=== PATIENT | male | born 1955 | race Hispanic/Latino ===

== ENCOUNTER 2017-09-20 15:00 | Inpatient (IN) | payer OTHER ==
[~2017-09-20] VITALS: Ht 177.8 cm; Wt 116.7 kg
[~2017-09-20 15:00] MED LIST: NIFE60TA12 PO; ZOLP10TA6 PO
[2017-09-20 16:16] LABS: INR 0.92 (0.85-1.15); PARTIAL THROMBOPLASTIN TIME 24.7 SEC (26.3-35.5); PROTHROMBIN TIME 9.7 SEC (9.6-11.6)
[2017-09-20 16:40] VITALS: BP 131/81
[2017-09-20] MEDS ORDERED: DOCU-116 PO (18:02)
[2017-09-20] MEDS ORDERED: LISI40TA4 PO (18:02)
[2017-09-20] MEDS ORDERED: GABA-531 PO (18:02)
[2017-09-23] VITALS (22 sets, daily range): BP systolic 110–161; BP diastolic 64–92
[2017-09-23] MEDS ORDERED: CEFAZOLIN SODIUM 1 GM VIAL ONE ×4 (06:55→20:51)
[2017-09-23] MEDS ORDERED: TRANEXAMIC ACID 1000MG/10ML IV ONE (06:55)
[2017-09-23] MEDS ORDERED: CEFAZOLIN 3GM /D5W 100ML 100 ML IV ONE (08:00)
[2017-09-23] MEDS ORDERED: LACTATED RINGERS 1000ML 1,000 ML IV ONE (08:00)
[2017-09-23] MEDS ORDERED: WATER FOR INJECTION,STERILE 20 ML VIAL ONE (08:00)
[2017-09-23] MEDS ORDERED: ACETAMINOPHEN EXTRA STRENGTH 500 MG TABLET ONE (08:23)
[2017-09-23] MEDS ORDERED: CELECOXIB 200 MG CAP ONE (08:24)
[2017-09-23] MEDS ORDERED: KETOROLAC TROMETHAMINE 15MG/ML ONE (08:24)
[2017-09-23] MEDS ORDERED: METOCLOPRAMIDE 10 MG/2 ML VIAL ONE (08:24)
[2017-09-23] MEDS ORDERED: OXYCODONE HCL 10 MG TAB.SR.12H PO ONE (08:25)
[2017-09-23] MEDS ORDERED: ROPIVACAINE 0.5% 5MG/ML 30ML IJ ONE (10:28)
[2017-09-23] MEDS ORDERED: SUCCINYLCHOLINE 200MG/10ML SYR ONE (10:29)
[2017-09-23] MEDS ORDERED: NEOSTIGMINE METHYLSULFATE 1MG/ML IV ONE (10:29)
[2017-09-23] MEDS ORDERED: DEXAMETHASONE SOD PHOSPHATE 10MG/ML 1ML VIAL ONE (10:29)
[2017-09-23] MEDS ORDERED: ONDANSETRON HCL 4 MG/2 ML VIAL ONE (10:29)
[2017-09-23] MEDS ORDERED: GLYCOPYRROLATE 0.2 MG/ML 5 ML VIAL ONE (10:29)
[2017-09-23] MEDS ORDERED: LIDOCAINE PF 2% 5ML ABBOJECT ONE (10:29)
[2017-09-23] MEDS ORDERED: FENTANYL CITRATE PF 50 MCG/1 ML 2ML VIAL ONE (10:30)
[2017-09-23] MEDS ORDERED: PROPOFOL 10 MG/ML 20ML VIAL IV ONE (10:30)
[2017-09-23] MEDS ORDERED: MIDAZOLAM HCL 1 MG/ML 2ML VIAL ONE (10:30)
[2017-09-23] MEDS ORDERED: BUPIVACAINE/EPI/PF 0.25% 30ML VIAL IJ ONE (11:50)
[2017-09-23] MEDS ORDERED: TEMAZEPAM 15 MG CAPSULE PO PRN (14:15)
[2017-09-23] MEDS ORDERED: OXYCODONE HCL 5 MG TAB PO PRN (14:15)
[2017-09-23] MEDS ORDERED: POTASSIUM CHLORIDE 20 MEQ ERTAB PO PRN (14:15)
[2017-09-23] MEDS: ACETAMINOPHEN 325 MG TAB PO SCH ×2 (14:15→21:02)
[2017-09-23] MEDS ORDERED: PROMETHAZINE HCL 25 MG/ML 1ML AMPULE IM PRN (14:15)
[2017-09-23] MEDS ORDERED: TRAMADOL HCL 50 MG TABLET PO PRN (14:15)
[2017-09-23] MEDS ORDERED: DiphenhydrAMINE HCL 50 MG/ML VIAL IVP PRN (14:15)
[2017-09-23] MEDS ORDERED: DIPHENHYDRAMINE HCL 25 MG CAPSULE PO PRN (14:15)
[2017-09-23] MEDS ORDERED: POTASSIUM CHLORIDE 10% ELIXIR 20 MEQ/15 ML UDCUP PO PRN (14:15)
[2017-09-23] MEDS ORDERED: LIDOCAINE HCL-MPF 1% 2ML VIAL IVP PRN (14:15)
[2017-09-23] MEDS ORDERED: POTASSIUM CHLORIDE 20MEQ/100ML 100 ML IV PRN (14:15)
[2017-09-23] MEDS ORDERED: FERROUS FUMARATE 324 MG TABLET PO PRN (14:15)
[2017-09-23] MEDS ORDERED: MEPERIDINE-PF 25 MG/ML SYG ONE ×2 (14:23→14:33)
[2017-09-23] MEDS ORDERED: KETOROLAC TROMETHAMINE 30MG/ML ONE (14:23)
[2017-09-23] MEDS ORDERED: MORPHINE SULFATE 10 MG/ML 1ML SYG ONE (14:33)
[2017-09-23] MEDS: SODIUM CHLORIDE 0.9% 1000ML 1,000 ML IV SCH (15:41)
[2017-09-23] MEDS: OXYCODONE HCL 5 MG TAB PO PRN (15:48)
[2017-09-23] MEDS ORDERED: PHARMACY COMMUNICATION MISC SCH (18:30)
[2017-09-23] MEDS: ASPIRIN 325 MG TABLET PO SCH (20:55)
[2017-09-23] MEDS: GABAPENTIN 300 MG CAPSULE PO SCH (20:56)
[2017-09-23] MEDS ORDERED: TRANEXAMIC ACID 1,000 MG in SODIUM CHLORIDE 0.9% 100 ML IV ONE (21:00)
[2017-09-23] MEDS ORDERED: PREGABALIN 25 MG CAP PO SCH (21:00)
[2017-09-23] MEDS: CEFAZOLIN 2GM / 50 ML 50 ML IV SCH (21:01)
[2017-09-23] MEDS: CELECOXIB 200 MG CAP PO SCH (21:02)
[2017-09-23] MEDS: ZOLPIDEM TARTRATE 5 MG TAB PO SCH (21:02)
[2017-09-23] MEDS: FAMOTIDINE 20MG TAB 20 MG TAB PO SCH (21:03)
[2017-09-24] MEDS: SODIUM CHLORIDE 0.9% 1000ML 1,000 ML IV SCH ×2 (01:18→10:08)
[2017-09-24] MEDS: OXYCODONE HCL 5 MG TAB PO PRN ×4 (01:18→19:39)
[2017-09-24] MEDS ORDERED: CEFAZOLIN SODIUM 1 GM VIAL ONE (02:46)
[2017-09-24] MEDS: CEFAZOLIN 2GM / 50 ML 50 ML IV SCH (02:50)
[2017-09-24] MEDS: ACETAMINOPHEN 325 MG TAB PO SCH ×4 (02:51→19:40)
[2017-09-24 04:00] VITALS: BP 130/81
[2017-09-24 05:38] LABS: HEMATOCRIT 32.9 % (42-54); MEAN CORPUSCULAR HEMOGLOBIN 30.9 pg (27.0-33.0); MEAN CORPUSCULAR HGB CONC 34.7 g/dL (32.0-36.0); MEAN CORPUSCULAR VOLUME 88.8 fL (79-99); PLATELET COUNT (AUTO) 149 K/uL (130-400); RED CELL DISTRIBUTION WIDTH 12.7 % (11.0-15.5); WHITE BLOOD COUNT (AUTO) 10.1 K/uL (4.8-10.8)
[2017-09-24 05:44] LABS: CREATININE 1.2 mg/dL (0.5-1.5); POTASSIUM 4.6 mmol/L (3.5-5.1)
[2017-09-24 07:52] VITALS: BP 146/94
[2017-09-24] MEDS: DOCUSATE SODIUM 100 MG CAP PO SCH (07:58)
[2017-09-24] MEDS: ASPIRIN 325 MG TABLET PO SCH ×2 (07:58→19:39)
[2017-09-24] MEDS: CELECOXIB 200 MG CAP PO SCH ×2 (07:58→19:39)
[2017-09-24] MEDS: FAMOTIDINE 20MG TAB 20 MG TAB PO SCH ×2 (07:59→19:40)
[2017-09-24] MEDS: TAMSULOSIN HCL 0.4 MG CAP.ER.24H PO SCH (07:59)
[2017-09-24] MEDS: POLYETHYLENE GLYCOL 3350 17 GM POWD.PACK PO SCH (07:59)
[2017-09-24] MEDS: LISINOPRIL 40 MG TABLET PO SCH (07:59)
[2017-09-24] MEDS: NIFEDIPINE ER 30 MG TAB PO SCH (08:02)
[2017-09-24] MEDS: GABAPENTIN 300 MG CAPSULE PO SCH ×3 (08:02→19:40)
[2017-09-24] MEDS: KETOROLAC TROMETHAMINE 30MG/ML IV PRN ×2 (09:15→15:39)
[2017-09-24 11:27] VITALS: BP 107/65
[2017-09-24] MEDS: PSYLLIUM SEED 1 EACH PACKET PO SCH (11:56)
[2017-09-24 16:26] VITALS: BP 102/56
[2017-09-24 20:00] VITALS: BP 103/59
[2017-09-24] MEDS: ZOLPIDEM TARTRATE 5 MG TAB PO SCH (21:41)
[2017-09-25] VITALS (7 sets, daily range): BP systolic 99–130; BP diastolic 55–66
[2017-09-25] MEDS: ACETAMINOPHEN 325 MG TAB PO SCH ×4 (01:06→19:27)
[2017-09-25] MEDS: OXYCODONE HCL 5 MG TAB PO PRN ×5 (01:07→23:56)
[2017-09-25 05:45] LABS: HEMATOCRIT 26.7 % (42-54); MEAN CORPUSCULAR HEMOGLOBIN 30.5 pg (27.0-33.0); MEAN CORPUSCULAR HGB CONC 34.7 g/dL (32.0-36.0); PLATELET COUNT (AUTO) 112 K/uL (130-400); RED BLOOD CELL COUNT(AUTO) 3.03 MIL/uL (4.50-6.20); RED CELL DISTRIBUTION WIDTH 13.1 % (11.0-15.5); WHITE BLOOD COUNT (AUTO) 7.3 K/uL (4.8-10.8)
[2017-09-25 05:52] LABS: CREATININE 1.3 mg/dL (0.5-1.5); POTASSIUM 3.9 mmol/L (3.5-5.1)
[2017-09-25] MEDS: NIFEDIPINE ER 30 MG TAB PO SCH (06:23)
[2017-09-25] MEDS: LISINOPRIL 40 MG TABLET PO SCH (06:24)
[2017-09-25] MEDS ORDERED: BISACODYL 5 MG TABLET.DR PO ONE (07:57)
[2017-09-25] MEDS: TAMSULOSIN HCL 0.4 MG CAP.ER.24H PO SCH (08:01)
[2017-09-25] MEDS: CELECOXIB 200 MG CAP PO SCH ×2 (08:03→19:28)
[2017-09-25] MEDS: POLYETHYLENE GLYCOL 3350 17 GM POWD.PACK PO SCH (08:03)
[2017-09-25] MEDS: ASPIRIN 325 MG TABLET PO SCH ×2 (08:03→19:28)
[2017-09-25] MEDS: DOCUSATE SODIUM 100 MG CAP PO SCH (08:03)
[2017-09-25] MEDS: GABAPENTIN 300 MG CAPSULE PO SCH ×3 (08:04→19:27)
[2017-09-25] MEDS: CALCIUM CARBONATE 500 MG TABLET PO PRN ×2 (08:04→19:27)
[2017-09-25] MEDS: FAMOTIDINE 20MG TAB 20 MG TAB PO SCH ×2 (08:04→19:27)
[2017-09-25] MEDS: KETOROLAC TROMETHAMINE 30MG/ML IV PRN ×2 (08:11→13:45)
[2017-09-25] MEDS: PSYLLIUM SEED 1 EACH PACKET PO SCH (12:04)
[2017-09-25] MEDS ORDERED: BISACODYL 5 MG TABLET.DR PO PRN (14:15)
[2017-09-25] MEDS ORDERED: BISACODYL 10 MG SUPP.RECT RC ONE (21:28)
[2017-09-25] MEDS: BISACODYL 10 MG SUPP.RECT RC PRN (21:29)
[2017-09-25] MEDS: ZOLPIDEM TARTRATE 5 MG TAB PO SCH (21:29)
[2017-09-26] VITALS: BP 106/59
[2017-09-26] MEDS: KETOROLAC TROMETHAMINE 30MG/ML IV PRN ×2 (00:01→08:37)
[2017-09-26] MEDS: ACETAMINOPHEN 325 MG TAB PO SCH ×3 (03:03→12:40)
[2017-09-26 04:00] VITALS: BP 128/65
[2017-09-26 05:32] LABS: HEMATOCRIT 25.7 % (42-54); MEAN CORPUSCULAR HEMOGLOBIN 31.1 pg (27.0-33.0); MEAN CORPUSCULAR HGB CONC 34.9 g/dL (32.0-36.0); MEAN CORPUSCULAR VOLUME 89.2 fL (79-99); PLATELET COUNT (AUTO) 109 K/uL (130-400); RED BLOOD CELL COUNT(AUTO) 2.88 MIL/uL (4.50-6.20); RED CELL DISTRIBUTION WIDTH 13.3 % (11.0-15.5)
[2017-09-26] MEDS ORDERED: BISACODYL 10 MG SUPP.RECT RC ONE (05:39)
[2017-09-26] MEDS: BISACODYL 10 MG SUPP.RECT RC PRN (05:39)
[2017-09-26 05:43] LABS: CREATININE 1.2 mg/dL (0.5-1.5); POTASSIUM 4.2 mmol/L (3.5-5.1)
[2017-09-26] MEDS ORDERED: LACTULOSE 20 GM/30 ML UDCUP PO PRN (06:45)
[2017-09-26] MEDS: FAMOTIDINE 20MG TAB 20 MG TAB PO SCH (07:58)
[2017-09-26] MEDS: DOCUSATE SODIUM 100 MG CAP PO SCH (07:58)
[2017-09-26] MEDS: POLYETHYLENE GLYCOL 3350 17 GM POWD.PACK PO SCH (07:58)
[2017-09-26] MEDS: ASPIRIN 325 MG TABLET PO SCH (07:59)
[2017-09-26] MEDS: CELECOXIB 200 MG CAP PO SCH (07:59)
[2017-09-26] MEDS: LISINOPRIL 40 MG TABLET PO SCH (07:59)
[2017-09-26] MEDS: CALCIUM CARBONATE 500 MG TABLET PO PRN (07:59)
[2017-09-26] MEDS: TAMSULOSIN HCL 0.4 MG CAP.ER.24H PO SCH (08:00)
[2017-09-26] MEDS: NIFEDIPINE ER 30 MG TAB PO SCH (08:02)
[2017-09-26] MEDS: GABAPENTIN 300 MG CAPSULE PO SCH (08:02)
[2017-09-26] MEDS: OXYCODONE HCL 5 MG TAB PO PRN ×2 (08:43→12:42)
[2017-09-26 08:50] VITALS: BP 116/61
[2017-09-26 11:25] VITALS: BP 106/62
[2017-09-26] MEDS: PSYLLIUM SEED 1 EACH PACKET PO SCH (12:39)
== END 2017-09-26 14:16 | DRG 462 ==
LOC: DAHIP 09-23 07:27 → 4AH 09-23 15:05
PROVIDERS: ADMIT Orthopaedic Surgery; ATTEND Orthopaedic Surgery
PROC: 0SRD0J9 Replacement of Left Knee Joint with Synthetic Substitute, Cemented, Open Approach (ICD-10-PCS; principal; 2017-09-23 10:28)
PROC: 0SRC0J9 Replacement of Right Knee Joint with Synthetic Substitute, Cemented, Open Approach (ICD-10-PCS; 2017-09-23 10:28)
DX: M17.0 Bilateral primary osteoarthritis of knee (principal); G62.9 Polyneuropathy, unspecified; G89.29 Other chronic pain; I10 Essential (primary) hypertension; K59.00 Constipation, unspecified; M54.5 Low back pain; M06.9 Rheumatoid arthritis, unspecified; Z96.651 Presence of right artificial knee joint; I25.2 Old myocardial infarction; Z82.49 Family history of ischemic heart disease and other diseases of the circulatory system
CPT/HCPCS: 36415; 80048; 85027; 85610; 85730; 88305; 88311; 96374; 96375; C1713; J0330; J0690; J1100; J1885; J2001; J2175; J2250; J2270; J2405; J2704; J2710; J2765; J2795; J3010; J3490; J7030; J7120

== ENCOUNTER → 2024-09-01 | Outpatient (CLI) | payer OTHER ==
[~2024-09-01] MED LIST changes: +DOCU-116 PO; +GABA-531 PO; +LISI40TA9 PO
[2024-09-01] MEDS: REGADENOSON 0.4 MG/5 ML PF SYG IVP ONE (10:33)
--- NOTE | 2024-09-02 14:44 | HMCSR ---
APPROVED REPORT Height: 5 ft 8in Weight: 256 lbs TEST INDICATIONS I25.10 ATHSCL HEART DISEASE OF [place] CORONARY ARTERY The imaging protocol used to acquire images was Rest Tc-99m/stress Tc-99m 1 day Consent: The procedure was explained and understood by the patient. Informerd consent was witnessed Angelia FERRO RN First, low dose rest was performed then high dose stress. RESTING DATA: The resting ekg shows: NSR Rest SPECT myocardial perfusion imaging was performed in supine position 49 minutes following the int ravenous injection of 12.3 mCi of Tc-99 Sestamibi. Time of rest injection: 08:47: Date: 09/01/2024 Time of rest imagin:36: Date: 09/01/2024 PHARMACOLOGIC STRESS: Pharmacologic stress test was performed by injecting regadenoson 0.4 mg IV push followed by the intra venous injection of 32.4 mCi of Tc-99 Sestamibi. Time of stress injection: 10:07: Date: 09/01/2024 Time of stress imagin:26: Date: 09/01/2024 Heart Rate at time of stress injection: 66 bpm. Gated Stress SPECT was performed 79 minutes after stress injection. The images were gated to evaluate regional wall motion and calculate left ventricular ejection fracti on. STRESS DETAILS Reason for Termination: Infusion complete Stress Symptoms: Dyspnea Max HR Achieved: 80 bpm % of APMHR Achieved: 52 Max Blood Pressure: 142/84 mmHg Stress ECG: NSR Conclusion No ischemia Fixed inferior defect consistent with Diaphragm attenuation artifact Mildly dilated LV at rest and stress No increased lung uptake Normal LV wall motion LV ejection fraction 56%
== END | disposition home or self-care (01) ==
LOC: SHCH 08:25
PROVIDERS: ATTEND Internal Medicine Cardiovascular Disease
DX: I51.7 Cardiomegaly (principal); I25.10 Atherosclerotic heart disease of native coronary artery without angina pectoris; R06.00 Dyspnea, unspecified
CPT/HCPCS: 78452; 93017; J2785; A9500 ×2